=== PATIENT | female | born 1955 | race Caucasian/White ===

== ENCOUNTER 2020-12-25 12:24 | Inpatient (IN) | payer MEDICAID, SELFPAY ==
[~2020-12-25] VITALS: Ht 160 cm; Wt 67.6 kg
--- NOTE | 2020-12-25 12:24 | NUR ---
BIBA TO BED 11
[2020-12-25 12:31] VITALS: BP 164/66
--- NOTE | 2020-12-25 12:41 | NUR ---
65 Y/O FEMALE BIBA FROM HOME FOR COMPLAINTS OF WEAKNESS, DIZZINESS AND DARK STOOL X TODAY. PT STATED SHE HAD A SHARP PAIN IS HER ABD X1 MONTH AGO AND STARTED HAVING RECTAL BLEEDING/BLACK STOOL. THE PAIN AND BLOOD WENT AWAY AND RETURNED SATURDAY. PT STATED IT WAS BRIGHT RED AND NOW SHE IS HAVING BLACK/DARK BROWN STOOD. PT C/O DIZZINESS AND FEELING FAINT/WEAK. PT DENIES FALLING/FAINTING. PT DENIES PAIN, N/V. ABD IS FLAT, SOFT, AND NONTENDER WITH ACTIVE BOWEL SOUNDS X4 QUADS. PT AOX4, WITH EVEN AND UNLABORED RESPIRATIONS. SKIN WARM AND DRY. PT IN GOWN IN BED IN LOWEST POSITION, SEMI-FOWLERS, LOCKED, X2 SIDERAILS UP FOR SAFETY. PT ON VEGETABLE FARMWORKER PMH - HTN, GASTRIC ULCERS, GI BLEED X15 YRS AGO NKDA
--- NOTE | 2020-12-25 13:00 | NUR ---
RAD AT BEDSIDE
[2020-12-25 13:05] LABS: BASOPHILS % (AUTO) 0.3 % (0.0-2.0); EOSINOPHILS % (AUTO) 0.1 % (0.0-4.0); HEMATOCRIT 21.4 % (36-48); HEMOGLOBIN 7.1 g/dL (12.0-16.0); LYMPHOCYTES % (AUTO) 12.4 % (20.5-51.1); MEAN CORPUSCULAR HEMOGLOBIN 31 pg (27-31); MEAN CORPUSCULAR HGB CONC 33 g/dL (33-37); MEAN CORPUSCULAR VOLUME 92.4 fL (80-94); MONOCYTES # (AUTO) 0.5 K/uL (0.8-1.0); MONOCYTES % (AUTO) 6.5 % (1.7-9.3); NEUTROPHILS # (AUTO) 6.6 K/uL (1.8-7.7); NEUTROPHILS % (AUTO) 80.7 % (42.2-75.2); PLATELET COUNT (AUTO) 490 K/uL (140-450); RED BLOOD CELL COUNT(AUTO) 2.31 MIL/uL (4.20-5.40); RED CELL DISTRIBUTION WIDTH 14.9 % (11.6-13.7); WHITE BLOOD COUNT (AUTO) 8.2 K/uL (4.8-10.8)
[2020-12-25 13:18] LABS: ANION GAP 12.6 (8-16); CARBON DIOXIDE 26.3 mmol/L (21-32); CREATININE 0.8 mg/dL (0.6-1.3); POTASSIUM 3.9 mmol/L (3.5-5.1); TOTAL BILIRUBIN 0.2 mg/dL (0.0-1.0)
--- NOTE | 2020-12-25 13:20 | NUR ---
DR YEUNG AT BEDSIDE
[2020-12-25 13:21] LABS: PROTHROMBIN TIME 9.3 secs (10.8-13.4)
--- NOTE | 2020-12-25 13:58 | NUR ---
Female Laborer High Density Press accompanied female patient for Rectal Exam.
[2020-12-25] MEDS ORDERED: PANTOPRAZOLE 40 MG INJ VIAL IVP ONE (14:05)
[2020-12-25] MEDS: PANTOPRAZOLE 80 MG in NACL 0.9% 100 ML IVP SCH (14:48)
--- NOTE | 2020-12-25 15:10 | NUR ---
PT RESTING IN BED WITH EVEN AND UNLABORED RESPIRATIONS. PT ON INDUSTRIAL COOK. VSS. WILL CONTINUE TO MONITOR
[2020-12-25] MEDS ORDERED: ONDANSETRON 4 MG/2 ML VIAL IM/IVP PRN (15:40)
[2020-12-25] MEDS ORDERED: guaiFENesin DM 200/20 MG-10 ML 10 ML UDC PO PRN (15:40)
[2020-12-25] MEDS ORDERED: HYDROcodone/APAP 7.5/325 MG 1 TAB PO PRN (15:40)
[2020-12-25] MEDS ORDERED: ZOLPIDEM 5 MG TAB PO PRN (15:40)
[2020-12-25] MEDS ORDERED: ACETAMINOPHEN 325 MG TAB PO PRN (15:40)
[2020-12-25] MEDS ORDERED: POTASSIUM CHLORIDE 10 MEQ TABER PO PRN (15:40)
[2020-12-25] MEDS ORDERED: DOCUSATE SODIUM 100 MG GELCAP PO PRN (15:40)
--- NOTE | 2020-12-25 16:02 | NUR ---
REPORT GIVEN TO MITUL CRESPO FOR ADMIT TO [facility] 107B. ETA 20 MINS
--- NOTE | 2020-12-25 16:24 | NUR ---
Patient will be admitted to care of DR GUY BAPTISTE. Admited to [facility]. Will go to room 107B. Belongings list completed. Report to MITUL CRESPO.
[2020-12-25 16:27] LABS: CHOL/HDL RATIO 5.9 (1-4.5); FREE T4 (FREE THYROXINE) 1.01 ng/dL (0.76-1.46); MAGNESIUM 2.5 mg/dL (1.8-2.4); PHOSPHORUS 3.6 mg/dL (2.5-4.9); THYROID STIMULATING HORMONE 0.8 uIU/mL (0.34-3.74)
[2020-12-25 16:50] VITALS: BP 157/69
--- NOTE | 2020-12-25 17:18 | NUR ---
alert, oriented, appropriate, via an conference interpreter, who is an ED staff, all info obtained. on bedrest right now, type and screen is to be done, no TX UNLESS HGB < 7. Consent for blood tx signed by the patient, just in case she needs it , while patient is very clear minded. right now getting her protonix at 10cc/hr, NPO for now as ordered.
--- NOTE | 2020-12-25 19:15 | NUR ---
RECEIVED PATIENT FROM AM NURSE FOR CONTINUITY OF CARE. PATIENT IS HUNGARIAN SPEAKING, ABLE TO UNDERSTAND BASIC COLOMBIAN. A/A/O X4. RESPIRATORY EVEN AND UNLABORED, ON ROOM AIR, NO SIGN OF DISTRESS NOTED. SKIN WARM, DRY, NON-DIAPHORETIC. IV ON LEFT AC 20G, IS INFUSING PROTONIX @10 ML/HR, IV IS INTACT AND PATENT. DENIES ANY PAIN OR DISCOMFORT. ABLE TO MAKE NEEDS KNOWN. PLAN OF CARE DISCUSSED. CALL LIGHT WITHIN REACH. WILL CONTINUE TO MONITOR.
[2020-12-25 20:00] VITALS: BP 147/69
--- NOTE | 2020-12-25 22:00 | NUR ---
MRSA COLLECTED FROM BOTH NARES. PATIENT IS NO SIGN OF DISTRESS NOTED. PRECAUTION IN PLACE. CALL LIGHT WITHIN REACH. WILL CONTINUE TO MONITOR.
[2020-12-25] MEDS: DEXT 5% /NACL 0.9% 1,000 ML IV SCH (23:12)
--- NOTE | 2020-12-26 | NUR ---
URINE COLLECTED AND TRANSFER TO LAB. PATIENT IS RESTING IN BED, NO SIGN OF DISTRESS NOTED. PRECAUTION IN PLACE. CALL LIGHT WITHIN REACH. WILL CONTINUE TO MONITOR.
[2020-12-26] MEDS: PANTOPRAZOLE 80 MG in NACL 0.9% 100 ML IVP SCH ×3 (00:05→10:34)
[2020-12-26 01:29] LABS: APPEARANCE,URINE CLEAR (CLEAR); BILIRUBIN,URINE NEGATIVE (NEGATIVE); BLOOD, URINE TRACE-I (NEGATIVE); COLOR,URINE YELLOW (YELLOW); LEUKOCYTE ESTERASE ,URINE 2+ (NEGATIVE); NITRITE, URINE NEGATIVE (NEGATIVE); UGLUCOSE NEGATIVE (NEGATIVE)
[2020-12-26 01:34] LABS: BARBITURATE, URINE NEGATIVE ng/ml (NEG <=200); BENZODIAZEPINE, URINE NEGATIVE ng/mL (NEG <=200); CANNABINOID, URINE NEGATIVE ng/mL (NEG <=50); COCAINE, URINE NEGATIVE ng/mL (NEG <=300); OPIATE, URINE NEGATIVE ng/mL (NEG <=2000); PHENCYCLIDINE SCREEN,URINE NEGATIVE ng/mL (NEG <=25)
[2020-12-26 01:37] LABS: RBC,URINE 0-5 /HPF (0-5)
--- NOTE | 2020-12-26 02:00 | NUR ---
ROUND CHECK. PATIENT IS SLEEPING, CHEST RISE AND FALL NOTED. NO SIGN OF RESPIRATORY DISTRESS NOTED. PRECAUTION IN PLACE. CALL LIGHT WITHIN REACH. WILL CONTINUE TO MONITOR.
[2020-12-26 04:00] VITALS: BP 117/73
--- NOTE | 2020-12-26 04:00 | NUR ---
ROUND CHECK. PATIENT IS AWAKE, RESTING IN BED, NO SIGN OF RESPIRATORY DISTRESS NOTED. CALL LIGHT WITHIN REACH. WILL CONTINUE TO MONITOR.
--- NOTE | 2020-12-26 06:10 | NUR ---
ROUND CHECK. PATIENT IS SLEEPING, AROUSABLE TO VOICE. NO SIGN OF DISTRESS NOTED. CALL LIGHT WITHIN REACH. WILL CONTINUE TO MONITOR.
[2020-12-26 07:07] LABS: ANION GAP 14.6 (8-16); CARBON DIOXIDE 27.4 mmol/L (21-32); CREATININE 0.8 mg/dL (0.6-1.3)
--- NOTE | 2020-12-26 07:20 | NUR ---
ENDORSED PATIENT TO AM NURSE FOR CONTINUITY OF CARE. PATIENT IS STABLE CONDITION.
[2020-12-26 07:27] LABS: BASOPHILS % (AUTO) 0.4 % (0.0-2.0); EOSINOPHILS % (AUTO) 0.3 % (0.0-4.0); LYMPHOCYTES # (AUTO) 1.2 K/uL (2.5-16.5); LYMPHOCYTES % (AUTO) 21.8 % (20.5-51.1); MEAN CORPUSCULAR HEMOGLOBIN 31 pg (27-31); MEAN CORPUSCULAR HGB CONC 33 g/dL (33-37); MEAN CORPUSCULAR VOLUME 92.8 fL (80-94); MONOCYTES # (AUTO) 0.5 K/uL (0.8-1.0); MONOCYTES % (AUTO) 10.2 % (1.7-9.3); NEUTROPHILS # (AUTO) 3.5 K/uL (1.8-7.7); NEUTROPHILS % (AUTO) 67.3 % (42.2-75.2); PLATELET COUNT (AUTO) 454 K/uL (140-450); RED BLOOD CELL COUNT(AUTO) 2.22 MIL/uL (4.20-5.40); RED CELL DISTRIBUTION WIDTH 14.6 % (11.6-13.7); WHITE BLOOD COUNT (AUTO) 5.3 K/uL (4.8-10.8)
--- NOTE | 2020-12-26 07:29 | NUR ---
PT RECEIVED FROM HIGH DENSITY PRESS LABORER RN. PT IS AWAKE IN BED. NO S/S OF DISTRESS AT THIS TIME. PT IS ABLE TO MAKE NEEDS KNOWN , NO COMPLAINS OF PAIN. IV IS PATENT AND CLEAR, NO REDNESS. CALL LIGHT IS WITHIN REACH. ALL SAFETY MEASURES ARE IN PLACE.
[2020-12-26 07:36] LABS: HEMOGLOBIN 6.8 g/dL (12.0-16.0)
[2020-12-26] MEDS: DEXT 5% /NACL 0.9% 1,000 ML IV SCH (08:34)
--- NOTE | 2020-12-26 08:34 | NUR ---
PATIENT HAS BEEN SCREENED AND CATEGORIZED LOW NUTRITION RISK. PATIENT WILL BE SEEN WITHIN 7 DAYS OF ADMISSION. 01/01/[address]
[2020-12-26] MEDS ORDERED: PANTOPRAZOLE 40 MG TABEC PO SCH (09:00)
--- NOTE | 2020-12-26 10:35 | NUR ---
PICKED UP RBC FROM LAB. PT EDUCATED, SET UP, AND DOUBLE VERIFICATION WAS DONE WITH CHERIE NEGRO.BLOOD TRANSFUSION BEGAN AT 1035. PT PRESET LAB VALUES WERE VERIFIED BY BOTH RNS, PT TOLERATING WELL THUS FAR. 98.7 99% ON ROOM AIR, 85P. BP- 149/58.
--- NOTE | 2020-12-26 11:11 | NUR ---
PT SITTING IN BED, NO REDNESS ITCHING , SOB, OR PAIN AT THIS TIME
--- NOTE | 2020-12-26 11:25 | NUR ---
DC PLANNING 65 YRS OLD FEMALE PATIENT WAS ADMITTED FROM HOME WITH A DX OF ANEMIA, GI BLEED. PT HAS A HX OF HTN. CXR SHOWED NO ACUTE CARDIOPULMONARY DISEASE. RAPID COVID TEST NEGATIVE. H/H 6.8 21.0 ORDERED 2 UNITS PRBC. ADMINISTERED IVF, PROTONIX IV AND CONTINUE HOME MEDS. CONSULTED WITH GI . DC PLAN TO GO HOME WHEN STABLE. CM TO FOLLOW Addendum: 12/27/20 at 1045 by Ria Avery RN DC PLANNING: TRANSFUSED ONE UNIT PRBC H/H 8.4/ HAD EGD SHOWED NO ACTIVE BLEEDING , NO ULCER SCHEDULE FOR COLONOSCOPY TODAY WITH DR RUSH . DC PLAN TO GO HOME WHEN STABLE. CM TO FOLLOW
--- NOTE | 2020-12-26 11:59 | NUR ---
PT RESTIN IN BED, NO S/S OF DISTRESS, DENIES ANY PAIN, ITCHING OR SOB.
--- NOTE | 2020-12-26 12:43 | NUR ---
SOCIAL WORK NOTE: Patient's Orientation Person Situation Place Time Information Provided By PATIENT Comments SW MET WITH PATIENT AT BEDSIDE AND COMPLETED ASSESSMENT WITH PATIENT. PATIENT STATED THAT SHE WILL NOW LIVE AT [address] [place] [address] [address]. Gas Tender, Realtionship and Phone Number IOANA ENNIS FRIEND [phone] Healthcare Power of Refuse Driver No Does Patient Have a POLST No Identifying Problems No Social Work Triggers Is A Social Work Consult Needed No Mandate Report Filed No Explanation Of Identifying Problems PATIENT IS A 65-YEAR-OLD FEMALE ADMITTED FOR ANEMIA AND GI BLEED. PATIENT HAS PMHX OF HYPERTENSION. Admitted From Home Pre-Admission Level Of Functioning Status Independent/Ambulatory Prior Resources/Services Used In Last 12 Months No Prior Resources Used Prior DME No Prior DME Used Dialysis Comments N/A Living Situation Apartment Lives With Family Patient Had Caregiver No Home Support No Caregiver Issues Financial Issues No Known Financial Issue Referral To The Financial Counselor Needed No Factors/Needs No D/C Needs Identified Pt/Rep Participated In Discharge Plan Yes Patient/Family Agress With Discharge Plan Yes Discharge Plan Comments TENTATIVE DISCHARGE PLAN IS FOR PATIENT TO RETURN HOME. DC Plan Status Initiated
[2020-12-26] MEDS ORDERED: fentaNYL citrate 0.05 MG/ML VIAL ONE (13:32)
[2020-12-26] MEDS ORDERED: diphenhydrAMINE 50 MG/ML VIAL ONE (13:32)
[2020-12-26] MEDS ORDERED: MIDAZOLAM 5 MG/5 ML VIAL ONE (13:32)
--- NOTE | 2020-12-26 13:35 | NUR ---
TRANSFUSION COMPLETE . PT STABLE
--- NOTE | 2020-12-26 13:44 | NUR ---
DR. RUSH AT BEDSIDE.
--- NOTE | 2020-12-26 13:49 | NUR ---
PT LEFT UNIT FOR PROCEDIRE
[2020-12-26] MEDS ORDERED: MIDAZOLAM 2 MG/2 ML VIAL IVP ONE (14:20)
[2020-12-26] MEDS ORDERED: fentaNYL citrate 0.05 MG/ML VIAL IVP ONE (14:20)
--- NOTE | 2020-12-26 14:20 | NUR ---
pt back from procedure. pt stable
--- NOTE | 2020-12-26 14:55 | NUR ---
MEDICATIONS GIVEN PER MD ORDER. PT EDUCATED AND VERBALIZED UNDERSTANDING. PT TOLERATED WELL.
[2020-12-26] MEDS ORDERED: SENNA 8.6 MG TAB PO SCH (15:00)
[2020-12-26 16:00] VITALS: BP 107/59
--- NOTE | 2020-12-26 16:16 | NUR ---
PT IN BED RESTING WITH EYES CLOSED RESPIRATIONS EVEN AND UNLABORED
[2020-12-26] MEDS: LANSOPRAZOLE 30 MG CAPDR PO SCH (16:30)
[2020-12-26] MEDS: LACTULOSE 20 GM/30 ML UDC PO SCH ×2 (17:46→20:18)
--- NOTE | 2020-12-26 17:52 | NUR ---
MEDICATIONS GIVEN PER MD ORDER. PT EDUCATED AND VERBALIZED UNDERSTANDING. PT TOLERATED WELL. PT EDUCATED ON BOWEL PREP AND IMPORTANCE OF FINISHING IT.
--- NOTE | 2020-12-26 19:15 | NUR ---
PT ENDORSED TO FLIGHT HOSTESS RN FOR CONTINUITY OF CARE
--- NOTE | 2020-12-26 19:16 | NUR ---
RECEIVED BEDSIDE REPORT FROM KORY RN TRINY. PT AOX4 ON ROOM AIR. NO S/S RESPIRATORY DISTRESS. NO C/O PAIN AT THIS TIME. IV SITE LAC 2OG PATENT INTACT, INFUSING PROTONIX ORDERED. SAFETY MEASURES IN PLACE. CALL LIGHT WITHIN REACH. WILL CONTINUE TO MONITOR
[2020-12-26 19:54] LABS: HEMATOCRIT 27.1 % (36-48)
[2020-12-26 20:00] VITALS: BP 129/59
--- NOTE | 2020-12-26 20:21 | NUR ---
SCHEDULED MEDICATION GIVEN ORDERED. EDUCATION PROVIDED. NO DISTRESS NOTED. CALL LIGHT WITHIN REACH. WILL CONTINUE TO MONITOR
[2020-12-26] MEDS: SUPREP BOWEL PREP KIT 354 ML SOLN.RECON PO SCH (21:16)
--- NOTE | 2020-12-26 21:16 | NUR ---
SCHEDULED BOWEL PREP GIVEN. EDUCATION PROVIDED. NO DISTRESS NOTED. BED IN LOW POSITION. CALL LIGHT WITHIN REACH. WILL CONTINUE TO MONITOR
--- NOTE | 2020-12-26 21:45 | NUR ---
PATIENT HAD A SEMI FORMED LIQUIDY BROWN BOWEL MOVEMENT. CLEANED AND CHANGED PATIENT. BED ON LOW POSITION. CALL LIGHT WITHIN REACH. WILL CONTINUE TO MONITOR
--- NOTE | 2020-12-26 23:10 | NUR ---
PATIENT ASLEEP IN BED. RESPIRATIONS EVEN UNLABORED. NO S/S ACUTE DISTRESS NOTED. BED IN LOW POSITION. CALL LIGHT WITHIN REACH. WILL CONTINUE TO MONITOR
[2020-12-27] MEDS: DEXT 5% /NACL 0.9% 1,000 ML IV SCH (01:00)
--- NOTE | 2020-12-27 01:00 | NUR ---
PATIENT HAD MIXTURE OF LIQUID AND SEMI SOLID BROWN STOOLS. PATIENT IN BED RESTING. NO DISTRESS NOTED. CALL LIGHT WITHIN REACH. WILL CONTINUE TO MONITOR
--- NOTE | 2020-12-27 03:19 | NUR ---
PATIENT ASLEEP IN BED. RESPIRATIONS EVEN UNLABORED. NO DISTRESS NOTED. CALL LIGHT WITHIN REACH. WILL CONTINUE TO MONITOR
[2020-12-27 04:00] VITALS: BP 159/85
--- NOTE | 2020-12-27 05:58 | NUR ---
PATIENT HAD A LIQUID YELLOWISH BROWN BOWEL MOVEMENT. PT RESTING IN BED. NO DISTRESS NOTED. CALL LIGHT WITHIN REACH. WILL CONTINUE TO MONITOR
[2020-12-27 06:41] LABS: BASOPHILS % (AUTO) 0.3 % (0.0-2.0); EOSINOPHILS % (AUTO) 0.1 % (0.0-4.0); HEMATOCRIT 25.7 % (36-48); HEMOGLOBIN 8.4 g/dL (12.0-16.0); LYMPHOCYTES # (AUTO) 1.4 K/uL (2.5-16.5); LYMPHOCYTES % (AUTO) 17.5 % (20.5-51.1); MEAN CORPUSCULAR HEMOGLOBIN 29 pg (27-31); MEAN CORPUSCULAR HGB CONC 33 g/dL (33-37); MEAN CORPUSCULAR VOLUME 89.3 fL (80-94); MONOCYTES # (AUTO) 0.5 K/uL (0.8-1.0); MONOCYTES % (AUTO) 6.7 % (1.7-9.3); NEUTROPHILS # (AUTO) 5.9 K/uL (1.8-7.7); NEUTROPHILS % (AUTO) 75.4 % (42.2-75.2); PLATELET COUNT (AUTO) 431 K/uL (140-450); RED BLOOD CELL COUNT(AUTO) 2.87 MIL/uL (4.20-5.40); RED CELL DISTRIBUTION WIDTH 15.8 % (11.6-13.7); WHITE BLOOD COUNT (AUTO) 7.8 K/uL (4.8-10.8)
[2020-12-27 06:43] LABS: ANION GAP 15.4 (8-16); CARBON DIOXIDE 25.3 mmol/L (21-32); CREATININE 0.8 mg/dL (0.6-1.3); POTASSIUM 3.7 mmol/L (3.5-5.1)
--- NOTE | 2020-12-27 07:20 | NUR ---
ENDORSED PATIENT TO DAY RN FOR CONTINUITY OF CARE. PATIENT IS IN STABLE CONDITION
--- NOTE | 2020-12-27 07:22 | NUR ---
RECEIVED REPORT FROM NIGHT NURSE PT IS AAOX4 ON ROOM AIR, AMBULATORY, S/P EGD ON 12/26/20. PT FOR COLONOSCOPY TODAY CON SENT SIGNED, S/P 1 UNIT PRBC ON 12/26/20, SKIN INTACT, H PYLORI NEGATIVE, IV INTACT ON LEFT AC, LAST BOWEL MOVEMENT 12/26/20. SAFETY MEASURES IN PLACE AND CALL LIGHT WITHIN REACH. WILL CONTINUE TO MONITOR.
[2020-12-27] MEDS: SUPREP BOWEL PREP KIT 354 ML SOLN.RECON PO SCH (08:26)
[2020-12-27] MEDS: LANSOPRAZOLE 30 MG CAPDR PO SCH ×2 (08:26→17:04)
[2020-12-27] MEDS: LACTULOSE 20 GM/30 ML UDC PO SCH ×2 (08:26→13:05)
--- NOTE | 2020-12-27 08:34 | NUR ---
MEDICATION DUE GIVEN PT TOLERATED WELL NO DISTRESS NOTED.
[2020-12-27 09:07] LABS: FERRITIN 15 ng/mL (15-150); TRANSFERRIN 354 mg/dL (192-364)
--- NOTE | 2020-12-27 11:00 | NUR ---
MADE ROUNDS PATIENT IS STILL ON NPO EXCEPT MEDICATIONS AND PT IS STABLE.
[2020-12-27 12:07] LABS: FOLIC ACID > 20.00 ng/mL (>3.0)
--- NOTE | 2020-12-27 13:00 | NUR ---
MEDICATION DUE GIVEN PT TOLERATED WELL
--- NOTE | 2020-12-27 14:48 | NUR ---
PATIENT OUT IN HER ROOM FOR COLONOSCOPY.
[2020-12-27] MEDS ORDERED: MIDAZOLAM 5 MG/5 ML VIAL ONE (14:54)
[2020-12-27] MEDS ORDERED: diphenhydrAMINE 50 MG/ML VIAL ONE (14:54)
[2020-12-27] MEDS ORDERED: fentaNYL citrate 0.05 MG/ML VIAL ONE (14:54)
[2020-12-27 15:06] LABS: T4 (THYROXINE) 8.5 ug/dL (4.5-12.0)
[2020-12-27 16:00] VITALS: BP 115/51
[2020-12-27] MEDS ORDERED: LACTULOSE 20 GM/30 ML UDC PO SCH ×2 (16:15→16:45)
[2020-12-27] MEDS ORDERED: MIDAZOLAM 2 MG/2 ML VIAL IVP ONE (16:15)
[2020-12-27] MEDS ORDERED: fentaNYL citrate 0.05 MG/ML VIAL IVP ONE (16:15)
--- NOTE | 2020-12-27 16:21 | NUR ---
PATIENT BACK IN HER ROOM S/P COLONOSCOPY NO SIGNS OF BLEEDING, WITH DIVERTICULOSIS. CHECK VITAL SIGNS BP 115/51 HI 71 RR 20 TEMP 97.4 AND OXYGEN SATURATION 94%. PT IS STABLE NO DISTRESS NOTED.
[2020-12-27] MEDS: FERROUS SULFATE 325 MG TABEC PO SCH (17:08)
--- NOTE | 2020-12-27 17:10 | NUR ---
MEDICATION DUE GIVEN PT TOLERATED WELL NO DISTRESS NOTED, DENIES PAIN.
--- NOTE | 2020-12-27 19:16 | NUR ---
ENDORSED TO NIGHT NURSE FOR CONTINUITY OF CARE. PT IS STABLE.
--- NOTE | 2020-12-27 19:17 | NUR ---
RECEIVED BEDSIDE REPORT FROM DAY CHERIE MERAZ. PT AOX4 ON ROOM AIR. NO S/S RESPIRATORY DISTRESS. NO C/O PAIN AT THIS TIME. IV SITE LAC 20G PATENT INTACT, S.L. SAFETY MEASURES IN PLACE. CALL LIGHT WITHIN REACH. WILL CONTINUE TO MONITOR
[2020-12-27 20:00] VITALS: BP 153/72
--- NOTE | 2020-12-27 21:32 | NUR ---
PATIENT AWAKE RESTING IN BED. NO S/S ACUTE DISTRESS NOTED. DENIES PAIN, DENIES DISCOMFORT. BED IN LOW POSITION. CALL LIGHT WITHIN REACH. WILL CONTINUE TO MONITOR
--- NOTE | 2020-12-27 23:27 | NUR ---
PATIENT ASLEEP IN BED. RESPIRATIONS EVEN UNLABORED. NO DISTRESS NOTED. CALL LIGHT WITHIN REACH. WILL CONTINUE TO MONITOR
--- NOTE | 2020-12-28 00:34 | NUR ---
PATIENT ASLEEP IN BED. RESPIRATIONS EVEN UNLABORED. NO DISTRESS NOTED. CALL LIGHT WITHIN REACH. WILL CONTINUE TO MONITOR
--- NOTE | 2020-12-28 03:02 | NUR ---
PATIENT ASLEEP IN BED. RESPIRATIONS EVEN UNLABORED. NO DISTRESS NOTED. CALL LIGHT WITHIN REACH. WILL CONTINUE TO MONITOR
[2020-12-28 04:00] VITALS: BP 121/69
--- NOTE | 2020-12-28 06:04 | NUR ---
PATIENT RESTING IN BED. DENIES DISCOMFORT. DENIES PAIN, DENIES NAUSEA. NO DISTRESS NOTED. CALL LIGHT WITHIN REACH. WILL CONTINUE TO MONITOR
[2020-12-28 06:31] LABS: BASOPHILS % (AUTO) 0.2 % (0.0-2.0); EOSINOPHILS % (AUTO) 0.2 % (0.0-4.0); HEMATOCRIT 25.2 % (36-48); HEMOGLOBIN 8.2 g/dL (12.0-16.0); LYMPHOCYTES # (AUTO) 1.4 K/uL (2.5-16.5); LYMPHOCYTES % (AUTO) 16.1 % (20.5-51.1); MEAN CORPUSCULAR HEMOGLOBIN 30 pg (27-31); MEAN CORPUSCULAR HGB CONC 33 g/dL (33-37); MEAN CORPUSCULAR VOLUME 90.8 fL (80-94); MONOCYTES # (AUTO) 0.6 K/uL (0.8-1.0); MONOCYTES % (AUTO) 7.6 % (1.7-9.3); NEUTROPHILS # (AUTO) 6.4 K/uL (1.8-7.7); NEUTROPHILS % (AUTO) 75.9 % (42.2-75.2); PLATELET COUNT (AUTO) 444 K/uL (140-450); RED BLOOD CELL COUNT(AUTO) 2.78 MIL/uL (4.20-5.40); RED CELL DISTRIBUTION WIDTH 15.6 % (11.6-13.7); WHITE BLOOD COUNT (AUTO) 8.4 K/uL (4.8-10.8)
[2020-12-28] MEDS: LANSOPRAZOLE 30 MG CAPDR PO SCH (06:31)
--- NOTE | 2020-12-28 06:35 | NUR ---
DUE MEDICATION GIVEN. EDUCATION PROVIDED. NO DISTRESS NOTED. CALL LIGHT WITHIN REACH. WILL CONTINUE TO MONITOR
[2020-12-28 06:39] LABS: CARBON DIOXIDE 25.5 mmol/L (21-32); CREATININE 0.6 mg/dL (0.6-1.3); POTASSIUM 3.5 mmol/L (3.5-5.1)
--- NOTE | 2020-12-28 07:20 | NUR ---
ENDORSED PATIENT TO DAY RN FOR CONTINUITY OF CARE. PATIENT IS IN STABLE CONDITION
--- NOTE | 2020-12-28 07:21 | NUR ---
RECEIVED REPORT FROM FLUE LINING DIPPER RN FOR CONTINUITY OF CARE. PATIENT RESTING IN BED IN SUPINE POSITION. AAOX4. RESPIRATORY EVEN UNLABORED. IV TO LEFT AC 20G PATENT, SALINE LOCK. SKIN INTACT. ABDOMEN SOFT NON TENDER. PATIENT DENIES PAIN AT THIS TIME. SAFETY MEASURES IN PLACE, WILL CONTINUE TO MONITOR.
[2020-12-28 08:00] VITALS: BP 155/61
[2020-12-28] MEDS ORDERED: FERR325E14 PO (08:29)
[2020-12-28] MEDS ORDERED: CEPH250C16 PO (08:29)
[2020-12-28] MEDS ORDERED: PSYL0.4C2 PO (08:29)
[2020-12-28] MEDS ORDERED: LACTULOSE 20 GM/30 ML UDC PO SCH (09:00)
[2020-12-28] MEDS ORDERED: PSYLLIUM 12.2 GM/PKT PO SCH (09:00)
[2020-12-28] MEDS: FERROUS SULFATE 325 MG TABEC PO SCH (09:20)
--- NOTE | 2020-12-28 09:20 | NUR ---
SCHEDULED MEDICATIONS GIVEN, EDUCATION PROVIDED. PATIENT DENIES PAIN OR DISCOMFORT. SAFETY MEASURES IN PLACE, WILL CONTINUE TO MONITOR.
[2020-12-28 10:02] VITALS: BP 134/60
--- NOTE | 2020-12-28 10:22 | NUR ---
RECHECKED PATIENT'S VS. TEMP 98/3, HR 80, BOP 134/60 IN SUPINE POSITION. O2 SAT 99% ON RA. PATIENT DENIES PAIN. INFORMED PATIENT THAT SHE IS GOING TO BE DISCHARGED. Addendum: 12/28/20 at 1353 by Ash Dumas RN TEMP 98.3 BP 134/60
--- NOTE | 2020-12-28 11:20 | NUR ---
DISCHARGE INSTRUCTIONS PROVIDED, PAPER SIGNED. INFORMED PATIENT TO TAKE MEDICATIONS PRESCRIBED, FOLLOW UP WITH PCP IN 2-3 DAYS. TAKE HIGH FIBER DIET. IV REMOVED WITH INTACT CANNULA. HANOUT REGARDING DISEASE PROCESS AND DIAGNOSIS PROVIDED. ALL QUESTIONS ANSWERED.
--- NOTE | 2020-12-28 11:25 | NUR ---
WHEEL PATIENT OUT OF THE HOSPITAL, PATIENT PICKED UP BY HER FAMILY MEMBER. PATIENT IN STABLE CONDITION, ALL PERSONAL BELONGINGS TAKEN.
== END 2020-12-28 11:25 | disposition home or self-care (01) | DRG 244 ==
LOC: MED 12:24 → MTU 14:06
PROVIDERS: ADMIT Emergency Medicine; ATTEND Emergency Medicine
PROC: 0DB68ZX Excision of Stomach, Via Natural or Artificial Opening Endoscopic, Diagnostic (ICD-10-PCS; 2020-12-26)
PROC: 30233N1 Transfusion of Nonautologous Red Blood Cells into Peripheral Vein, Percutaneous Approach (ICD-10-PCS; 2020-12-26)
PROC: 0DB58ZX Excision of Esophagus, Via Natural or Artificial Opening Endoscopic, Diagnostic (ICD-10-PCS; principal; 2020-12-26 13:30)
PROC: 0DJD8ZZ Inspection of Lower Intestinal Tract, Via Natural or Artificial Opening Endoscopic (ICD-10-PCS; 2020-12-27)
DX: K57.31 Diverticulosis of large intestine without perforation or abscess with bleeding (principal); D62 Acute posthemorrhagic anemia; D47.3 Essential (hemorrhagic) thrombocythemia; E78.5 Hyperlipidemia, unspecified; E86.0 Dehydration; I10 Essential (primary) hypertension; N39.0 Urinary tract infection, site not specified; R74.01 Elevation of levels of liver transaminase levels; Z20.822 Contact with and (suspected) exposure to COVID-19; K22.70 Barrett's esophagus without dysplasia; K44.9 Diaphragmatic hernia without obstruction or gangrene; D50.9 Iron deficiency anemia, unspecified; Z79.899 Other long term (current) drug therapy
CPT/HCPCS: 36415; 71045; 80048; 80053; 80305; 81001; 82150; 82607; 82728; 82746; 83036; 83540; 83690; 83735; 83880; 84100; 84436; 84439; 84443; 84479; 84484; 85018; 85025; 85045; 85610; 85730; 86677; 86886; 86900; 86901; 86920; 87081; 87086; 88305; 88313; 93005; 96374; 99291; C9113; J1200; J2250; J3010; J7030; J7042; P9016